=== PATIENT | female | born 1995 | race Caucasian/White ===

== ENCOUNTER 2020-02-11 05:59 | Emergency (ER) | payer BC ==
--- NOTE | 2020-02-11 06:53 | EDM.PDOC ---
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 An ultrasound showed a 2 mm yolk sac that was intrauterine. She is scheduled for a second quantitative beta-hCG on Wednesday. She is having a slight increase in brown discharge and became worried so came in. No cramping or pain. She is tearful because she has been trying to get for the past year. 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, Social & Family History - Tobacco Use Smoking Status *Q: Never Smoker - Caffeine Use Caffeine Use: Reports: None - Recreational Drug Use Recreational Drug Use: No ED ROS GENERAL - Review of Systems Review Of Systems: See Below Constitutional: Denies: Fever, Chills Respiratory: Denies: Shortness of Breath GI/Abdominal: Reports: No Symptoms : Reports: No Symptoms ED EXAM, GI/ABD - Physical Exam Exam: See Below Exam Limited By: No Limitations General Appearance: Alert, No Apparent Distress Respiratory/Chest: No Respiratory Distress Neurological: Alert, Oriented Psychiatric: Flat Affect, Tearful Skin Exam: Warm, Dry Course - Vital Signs Last Recorded V/S: Last Vital Signs Temp 97.7 F 02/11/20 06:20 Pulse 74 02/11/20 06:20 Resp 15 02/11/20 06:20 BP 116/80 02/11/20 06:20 Pulse Ox 97 02/11/20 06:20 - Re-Assessments/Exams Free Text/Narrative Re-Assessment/Exam: 02/11/20 06:53 Reviewed the ultrasound report from 2 days ago which showed a 2 mm intra- gestational yolk sac. A second ultrasound was not even recommended for 11 days. I discussed her case with Khalida Vásquez, her provider to discuss possible progesterone supplementation but it is probably not beneficial for just 2 days. Patient was reassured and will be rechecked on Wednesday as planned. Departure - Departure Time of Disposition: 06:59 Disposition: Home, Self-Care 01 Clinical Impression: Threatened - Discharge Information Instructions: Vaginal Bleeding During , First Trimester Referrals: Khalida Vásquez CNM [Primary Care Provider] - Forms: ED Department Discharge Care Plan Goals: Recheck on Wednesday as scheduled for your blood test. Sepsis Event Note - Evaluation Sepsis Screening Result: No Definite Risk - Focused Exam Vital Signs: Vital Signs Temp Pulse Resp BP Pulse Ox 02/11/20 06:20 97.7 F 74 15 116/80 97 Date Exam was Performed: 02/11/20 Time Exam was Performed: 17:30
== END 2020-02-11 07:00 | disposition home or self-care (01) ==
LOC: JP.ED 05:59
DX: O20.0 Threatened abortion (principal); Z3A.01 Less than 8 weeks gestation of pregnancy
CPT/HCPCS: 99283

== ENCOUNTER 2020-02-15 20:43 | Emergency (ER) | payer BC ==
--- NOTE | 2020-02-15 21:23 | EDM.PDOC ---
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 She had a beta-hCG quant on Wednesday with an ultrasound, was seen in the emergency room Wednesday morning and was followed up in the clinic on Wednesday and her quantitative was 19, 000. She had a little bit of increased spotting tonight and got scared so came in again. No pain or cramping. No fevers or chills or dysuria. She is not bleeding enough to use pads. 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: Reports: Polycystic Ovaries, Social & Family History - Tobacco Use Smoking Status *Q: Never Smoker - Caffeine Use Caffeine Use: Reports: Coffee - Recreational Drug Use Recreational Drug Use: No ED ROS GENERAL - Review of Systems Review Of Systems: See Below Constitutional: Denies: Fever, Chills Respiratory: Denies: Shortness of Breath GI/Abdominal: Denies: Vomiting Neurological: Denies: Headache ED EXAM - Physical Exam Exam: See Below Exam Limited By: No Limitations General Appearance: Alert, No Apparent Distress Respiratory/Chest: No Respiratory Distress (Female) Exam: Other (Vaginal exam was deferred) Neurological: Alert, Oriented Psychiatric: Anxious Skin Exam: Warm, Dry Course - Vital Signs Last Recorded V/S: Last Vital Signs Temp 97.4 F 02/15/20 21:02 Pulse 70 02/15/20 21:02 Resp 15 03/19/20 21:02 BP 118/63 02/15/20 21:02 Pulse Ox 97 02/15/20 21:02 - Orders/Labs/Meds Labs: Laboratory Tests 02/15/20 Range/Units 21:32 HCG, Quant 44208 H (0-6) mIU/mL - Re-Assessments/Exams Free Text/Narrative Re-Assessment/Exam: 02/15/20 21:22 A serum quantitative beta hCG was ordered. 02/15/20 22:52 Quant is now 38,000, consistent with an active . Recheck with her OB/ [facility] as needed. Departure - Departure Time of Disposition: 23:36 Disposition: Home, Self-Care 01 Clinical Impression: Threatened - Discharge Information Instructions: Round Ligament Pain, First Trimester of , [id number], Vaginal Bleeding During , First Trimester, [id number] Referrals: Khalida Vásquez CNM [Primary Care Provider] - Forms: ED Department Discharge Care Plan Goals: Your numbers are improving nicely. Recheck with your OB provider as scheduled. Sepsis Event Note - Evaluation Sepsis Screening Result: No Definite Risk - Focused Exam Vital Signs: Vital Signs Temp Pulse Resp BP Pulse Ox 02/15/20 21:02 97.4 F 70 15 118/63 97 02/15/20 21:00 97.4 F 70 15 118/63 97 Date Exam was Performed: 02/16/20 Time Exam was Performed: 01:05
== END 2020-02-15 23:36 | disposition home or self-care (01) ==
LOC: JP.ED 20:43
DX: O20.0 Threatened abortion (principal); Z3A.01 Less than 8 weeks gestation of pregnancy; Z79.899 Other long term (current) drug therapy
CPT/HCPCS: 36415; 84702; 99284

== ENCOUNTER 2020-09-14 10:54 | Inpatient (IN) | payer MEDICAID ==
[2020-09-14] MEDS ORDERED: Sodium Chloride 0.9% 1,000 ML IV ONE (11:40)
[2020-09-14] MEDS ORDERED: Acetaminophen 500 MG Tab PO ONE (11:42)
[2020-09-14] MEDS ORDERED: Sodium Chloride 0.9% 10 ML Syringe FLUSH PRN (15:06)
[2020-09-14] MEDS: Acetaminophen 325 MG Tab PO PRN (16:30)
[2020-09-14] MEDS: Labetalol 100 MG Tab PO SCH (19:05)
[2020-09-14] MEDS ORDERED: Zolpidem 5 MG Tab PO ONE (21:00)
[2020-09-15] MEDS: Acetaminophen 325 MG Tab PO PRN ×2 (07:53→19:32)
[2020-09-15] MEDS ORDERED: Misoprostol 50 MCG (1/2 of 100 MCG) Tab VAG ONE (08:00)
--- NOTE | 2020-09-15 09:42 | PCM.PNLD ---
Labor Progress Note - VS & Meds Vital Signs: Last Vital Signs Temp 97.6 F 09/15/20 07:45 Pulse 98 09/15/20 07:45 Resp 16 09/15/20 07:45 BP 117/75 09/15/20 07:45 Pulse Ox 98 09/15/20 07:45 Active Medications: Current Medications Acetaminophen (Tylenol) 650 mg PO Q4H PRN PRN Reason: mild pain and fever Last Admin: 09/15/20 07:53 Dose: 650 mg Documented by: Oxytocin/Sodium Chloride (Pitocin In Ns 20 Units/1,000 Ml) 20 unit in 1,000 mls @ 6 mls/hr IV TITRATE YOLIS; Protocol Penicillin G Potassium 5 (millunits/ Sodium Chloride) 100 mls @ 200 mls/hr IV ONETIME ONE Stop: 09/15/20 10:00 Penicillin G Potassium 2.5 (millunits/ Sodium Chloride) 50 mls @ 100 mls/hr IV Q4H YOLIS Labetalol HCl (Normodyne) 100 mg PO DAILY@1800 YOLIS Last Admin: 09/14/20 19:05 Dose: 100 mg Documented by: Sodium Chloride (Saline Flush) 10 ml FLUSH ASDIRECTED PRN PRN Reason: Keep Vein Open Discontinued Medications Acetaminophen (Tylenol Extra Strength) 1,000 mg PO Q4H ONE Stop: 09/14/20 11:43 Last Admin: 09/14/20 11:59 Dose: 1,000 mg Documented by: Sodium Chloride (Normal Saline) 1,000 mls @ 500 mls/hr IV .BOLUS ONE Stop: 09/14/20 13:39 Last Admin: 09/14/20 11:59 Dose: 500 mls/hr Documented by: Misoprostol (Cytotec) 50 mcg VAG ONETIME ONE Stop: 09/15/20 08:01 Last Admin: 09/15/20 08:59 Dose: 50 mcg Documented by: Zolpidem Tartrate (Ambien) 10 mg PO ONETIME ONE Stop: 09/14/20 21:01 Last Admin: 09/14/20 22:03 Dose: 10 mg Documented by: - Uterine Contractions Uterine Monitoring Mode: External [place] Contraction Frequency (min): 3-5 Contraction Duration (sec): 40-90 Contraction Intensity: Mild Uterine Resting Tone: Soft - Monitoring Monitor Mode: Doppler/Auscultation Heart Rate (FHR) Baseline: 140 Heart Rate (FHR) Variability: Moderate (6-25 bmp) Accelerations: Present, 15x15 Decelerations: None - Vaginal Exam Dilation (cm): 1 Effacement (Percent): 50 Station: -2 Cervical Position: Posterior Sterile Vaginal Exam Performed By: Khalida Vásquez Vaginal Exam Comment: Cytotec for cervical ripening placed by Shanta - Labor Progress (Free Text) Labor Progress: 09/15/20 37 5/7 weeks gestation hypertension with preeclampsia Positive GBS Did well over night, slept blood pressure stable on Labetalol headache better but not gone, is receiving Tylenol BPP 8/8 this morning with MARLI 13 NST reactive cat one strip baseline FHT 140 CE 50/-2 posterior soft Labs about the same LDH has increased PLT 238, HGB 10.9 Plan Miso 50 mcg vaginally at 0900 pitocin at 1300 treated for GBS if increase in symptoms or change in labs will start magnesium
[2020-09-15] MEDS ORDERED: Sodium Chloride 0.9% 100 ML ONE (09:44)
[2020-09-15] MEDS ORDERED: Penicillin G Potassium 5 MILLUNITS in Sodium Chloride 0.9% 100 ML IV ONE (10:00)
[2020-09-15] MEDS: Penicillin G Potassium 2.5 MILLUNITS in Sodium Chloride 0.9% 50 ML IV SCH ×2 (13:43→17:41)
--- NOTE | 2020-09-15 16:24 | PCM.PNLD ---
Labor Progress Note - VS & Meds Vital Signs: Last Vital Signs Temp 97.9 F 09/15/20 13:00 Pulse 105 H 09/15/20 13:00 Resp 16 09/15/20 13:00 BP 123/80 09/15/20 13:00 Pulse Ox 98 09/15/20 07:45 Active Medications: Current Medications Acetaminophen (Tylenol) 650 mg PO Q4H PRN PRN Reason: mild pain and fever Last Admin: 09/15/20 07:53 Dose: 650 mg Documented by: Oxytocin/Sodium Chloride (Pitocin In Ns 20 Units/1,000 Ml) 20 unit in 1,000 mls @ 6 mls/hr IV TITRATE YOLIS; Protocol Last Titration: 09/15/20 15:49 Dose: 8 munits/min, 24 mls/hr Documented by: Penicillin G Potassium 2.5 (millunits/ Sodium Chloride) 50 mls @ 100 mls/hr IV Q4H YOLIS Last Admin: 09/15/20 13:43 Dose: 100 mls/hr Documented by: Labetalol HCl (Normodyne) 100 mg PO DAILY@1800 YOLIS Last Admin: 09/14/20 19:05 Dose: 100 mg Documented by: Sodium Chloride (Saline Flush) 10 ml FLUSH ASDIRECTED PRN PRN Reason: Keep Vein Open Discontinued Medications Acetaminophen (Tylenol Extra Strength) 1,000 mg PO Q4H ONE Stop: 09/14/20 11:43 Last Admin: 09/14/20 11:59 Dose: 1,000 mg Documented by: Sodium Chloride (Normal Saline) 1,000 mls @ 500 mls/hr IV .BOLUS ONE Stop: 09/14/20 13:39 Last Admin: 09/14/20 11:59 Dose: 500 mls/hr Documented by: Penicillin G Potassium 5 (millunits/ Sodium Chloride) 100 mls @ 200 mls/hr IV ONETIME ONE Stop: 09/15/20 10:29 Last Admin: 09/15/20 09:53 Dose: 200 mls/hr Documented by: Sodium Chloride (Normal Saline) Confirm Administered Dose 100 mls @ as directed .ROUTE .STK-MED ONE Stop: 09/15/20 09:45 Last Admin: 09/15/20 10:00 Dose: Not Given Documented by: Misoprostol (Cytotec) 50 mcg VAG ONETIME ONE Stop: 09/15/20 08:01 Last Admin: 09/15/20 08:59 Dose: 50 mcg Documented by: Zolpidem Tartrate (Ambien) 10 mg PO ONETIME ONE Stop: 09/14/20 21:01 Last Admin: 09/14/20 22:03 Dose: 10 mg Documented by: - Uterine Contractions Uterine Monitoring Mode: Palpation Contraction Frequency (min): 2-3 Contraction Duration (sec): 60 Contraction Intensity: Moderate Uterine Resting Tone: Soft - Monitoring Monitor Mode: Doppler/Auscultation Heart Rate (FHR) Baseline: 140 Heart Rate (FHR) Variability: Moderate (6-25 bmp) Accelerations: Present, 15x15 Decelerations: None Strip Review: Category I - Vaginal Exam Dilation (cm): 1 Effacement (Percent): 50 Station: -1 Cervical Position: Posterior Sterile Vaginal Exam Performed By: Khalida Vásquez Vaginal Exam Comment: head is a little lower as cervix is more posterior but very difficult to reach at this check - Labor Progress (Free Text) Labor Progress: continue with Pitocin and reassess at 2000 this evening Cat one strip contractions not a total regular pattern. Siobhan is doing well with position changes and tolerating contractions well. B/P within normal limits with Pitocin induced contractions
[2020-09-15] MEDS: Labetalol 100 MG Tab PO SCH (17:41)
--- NOTE | 2020-09-15 19:45 | PCM.PNLD ---
Labor Progress Note - VS & Meds Vital Signs: Last Vital Signs Temp 98.7 F 09/15/20 19:37 Pulse 89 09/15/20 19:37 Resp 18 09/15/20 19:37 BP 106/68 09/15/20 19:37 Pulse Ox 96 09/15/20 19:37 Active Medications: Current Medications Acetaminophen (Tylenol) 650 mg PO Q4H PRN PRN Reason: mild pain and fever Last Admin: 09/15/20 19:32 Dose: 650 mg Documented by: Oxytocin/Sodium Chloride (Pitocin In Ns 20 Units/1,000 Ml) 20 unit in 1,000 mls @ 6 mls/hr IV TITRATE YOLIS; Protocol Last Titration: 09/15/20 19:39 Dose: 0 munits/min, 0 mls/hr Documented by: Penicillin G Potassium 2.5 (millunits/ Sodium Chloride) 50 mls @ 100 mls/hr IV Q4H YOLIS Last Admin: 09/15/20 17:41 Dose: 100 mls/hr Documented by: Labetalol HCl (Normodyne) 100 mg PO DAILY@1800 YOLIS Last Admin: 09/15/20 17:41 Dose: 100 mg Documented by: Sodium Chloride (Saline Flush) 10 ml FLUSH ASDIRECTED PRN PRN Reason: Keep Vein Open Discontinued Medications Acetaminophen (Tylenol Extra Strength) 1,000 mg PO Q4H ONE Stop: 09/14/20 11:43 Last Admin: 09/14/20 11:59 Dose: 1,000 mg Documented by: Sodium Chloride (Normal Saline) 1,000 mls @ 500 mls/hr IV .BOLUS ONE Stop: 09/14/20 13:39 Last Admin: 09/14/20 11:59 Dose: 500 mls/hr Documented by: Penicillin G Potassium 5 (millunits/ Sodium Chloride) 100 mls @ 200 mls/hr IV ONETIME ONE Stop: 09/15/20 10:29 Last Admin: 09/15/20 09:53 Dose: 200 mls/hr Documented by: Sodium Chloride (Normal Saline) Confirm Administered Dose 100 mls @ as directed .ROUTE .STK-MED ONE Stop: 09/15/20 09:45 Last Admin: 09/15/20 10:00 Dose: Not Given Documented by: Misoprostol (Cytotec) 50 mcg VAG ONETIME ONE Stop: 09/15/20 08:01 Last Admin: 09/15/20 08:59 Dose: 50 mcg Documented by: Zolpidem Tartrate (Ambien) 10 mg PO ONETIME ONE Stop: 09/14/20 21:01 Last Admin: 09/14/20 22:03 Dose: 10 mg Documented by: - Uterine Contractions Uterine Monitoring Mode: Palpation Contraction Frequency (min): 2-3 Contraction Duration (sec): 30-60 Contraction Intensity: Moderate Uterine Resting Tone: Soft - Monitoring Monitor Mode: Doppler/Auscultation Heart Rate (FHR) Baseline: 140 Heart Rate (FHR) Variability: Moderate (6-25 bmp) Accelerations: Present, 15x15 Decelerations: None Strip Review: Category I - Vaginal Exam Dilation (cm): 1 Effacement (Percent): 50 Station: -1 Cervical Position: Posterior Sterile Vaginal Exam Performed By: Khalida Vásquez Vaginal Exam Comment: no cervix change - Labor Progress (Free Text) Labor Progress: 09/15/20 gestational hypertension with preeclampsia Siobhan cervix hasn't changed all day. contractions are 1-2 minutes apart and pitocin has been infusing since 1300. Plan C section this evening Covid screening done surgery crew notified.
[2020-09-15] MEDS ORDERED: ceFAZolin 1 GM Vial ONE (20:15)
[2020-09-15] MEDS ORDERED: cefOXitin 2 GM Vial ONE (20:21)
[2020-09-15] MEDS ORDERED: ePHEDrine 50 MG/ML SDV ONE (20:21)
[2020-09-15] MEDS: Oxytocin 10 Units/1 ML SDV ONE ×3 (20:33→21:26)
[2020-09-15] MEDS: cefOXitin 1 GM Vial ONE ×2 (21:20→21:41)
[2020-09-15] MEDS ORDERED: Ondansetron 4 MG/2 ML SDV ONE (21:25)
[2020-09-15] MEDS ORDERED: Dexamethasone 4 MG/ML SDV ONE (21:25)
[2020-09-15] MEDS ORDERED: Oxytocin 10 Units/1 ML SDV ONE (21:50)
[2020-09-15] MEDS ORDERED: HYDROmorphone/Normal Saline 15 MG/30 ML PCA IV PRN (22:35)
[2020-09-15] MEDS ORDERED: hydrOXYzine HCL 100 MG/2 ML SDV IM PRN (22:44)
[2020-09-15] MEDS ORDERED: Dextrose 5%-Lactated Ringers 1,000 ML IV SCH (22:45)
[2020-09-15] MEDS ORDERED: Ondansetron 4 MG/2 ML SDV IVPUSH PRN (22:46)
[2020-09-15] MEDS ORDERED: Naloxone 0.4 MG/ML SDV IV PRN (23:00)
[2020-09-16] MEDS: Acetaminophen 500 MG Tab PO SCH ×5 (00:35→22:00)
[2020-09-16] MEDS: Ibuprofen 600 MG Tab PO SCH ×4 (01:06→20:44)
[2020-09-16] MEDS: Penicillin G Potassium 2.5 MILLUNITS in Sodium Chloride 0.9% 50 ML IV SCH (01:44)
[2020-09-16] MEDS: cefOXitin 2 GM in Sodium Chloride 0.9% 50 ML IV SCH ×4 (03:03→20:48)
[2020-09-16] MEDS ORDERED: Dextrose 5%-Lactated Ringers 1,000 ML IV SCH (07:00)
--- NOTE | 2020-09-16 08:02 | PN ---
DATE OF SERVICE: 09/16/2020 SUBJECTIVE: Siobhan is postoperative day #1. Vital signs have been stable. Pain has been managed with a FISHER HAND LINE. She has been up, ambulating. REVIEW OF SYSTEMS: Remainder of review of systems negative for any pertinent positives and negatives. OBJECTIVE: GENERAL: Siobhan is a pleasant 25-year-old female. VITAL SIGNS: TPR, last temperature at 0038 was 97.9. The rest of the vitals at 04:15; 89, 18, blood pressure 106/61. HEENT: Negative. NECK: Supple. HEART: Regular rate and rhythm. LUNGS: Clear. ABDOMEN: Dressing dry and intact. EXTREMITIES: Without peripheral edema. ASSESSMENT: section for term with preeclampsia and failure to progress after induction. Date of : 09/15/2020. Surgeon: Dl Fulton MD. PLAN: 1. Discontinue Mcnally catheter. 2. Advance diet as tolerated. 3. Decrease IV to 100 mL per hour. 4. Colace 100 mg p.o. b.i.d. 5. Continue use of incentive spirometer. 6. We will evaluate p.r.n. or in a.m. Katherin Garnda PA-C /[id number]
[2020-09-16] MEDS: Docusate Sodium 100 MG Cap PO SCH ×2 (08:04→20:45)
--- NOTE | 2020-09-16 10:14 | US ---
BPP w NST INDICATION: gestational hypertension COMPARISON: 09/11/2020 FINDINGS: Single live IUP heart rate: 130 BPM. Biophysical profile score: 8/8. MARLI: 13.6 cm. IMPRESSION: Normal biophysical profile score of 8/8.
[2020-09-16] MEDS: oxyCODONE 5 MG Tab PO PRN ×2 (17:48→22:01)
[2020-09-16] MEDS ORDERED: Lanolin 100% Cream 40 GM Tube TOP PRN (20:17)
[2020-09-17] MEDS: Ibuprofen 600 MG Tab PO SCH ×3 (03:55→14:04)
[2020-09-17] MEDS: oxyCODONE 5 MG Tab PO PRN ×2 (05:42→10:20)
[2020-09-17] MEDS: Acetaminophen 500 MG Tab PO SCH ×3 (05:43→16:54)
[2020-09-17] MEDS: Docusate Sodium 100 MG Cap PO SCH (10:19)
--- NOTE | 2020-09-17 11:07 | DISCH ---
ADMISSION DIAGNOSES: 1. Term . 2. Preeclampsia. 3. Failure to progress after induction. DISCHARGE DIAGNOSES: section for term with preeclampsia, failure to progress after induction. Date of 09/15/2020. Surgeon: Dl Fulton MD. HISTORY: Siobhan Manzo is a pleasant 25-year-old female who had failure to progress after induction. She had preeclampsia. After preoperative evaluation and discussion of possible risks and possible complications, she wished to proceed with surgical procedure. HOSPITAL COURSE: was on 09/15/2020, no complications. Delivery of a viable baby girl. Hospital course; postop day 1, Mcnally catheter was discontinued. Diet was advanced as tolerated. She was changed to oral pain medications. Started on a stool softener. On postoperative day 2, was able to be discharged to home. Afebrile. Pain controlled. Activity good. Vital signs stable. Oral intake and output adequate. REVIEW OF SYSTEMS: Remainder of review of systems negative for any pertinent positives and negatives. OBJECTIVE: GENERAL: Siobhan Allen is a pleasant 25-year-old female. VITAL SIGNS: Height 5 feet 10 inches, weight is 242 pounds. TPR is 97.9, 88, 16. Blood pressure 107/63. HEENT: Negative. NECK: Supple. HEART: Regular rate and rhythm. LUNGS: Clear. ABDOMEN: incision looks good. It is glued. EXTREMITIES: With trace peripheral edema. DISPOSITION: Discharged to home. CONDITION: Stable and improving. FOLLOWUP APPOINTMENT: With Katherin Granda PA-C, at [facility] on 09/26/2020 at 10:30 a.m. To follow up with Khalida Vásquez CNM, date to be made. HOME MEDICATIONS: 1. Oxycodone 5 mg q.6 hours p.r.n. pain #28. 2. She is to can take Colace 100 mg b.i.d. #60. 3. She will be taking home the lanolin, use as directed, p.r.n. topical. 4. Milk of magnesia 30 mL, 2 doses were sent home with the patient to take 1 daily, p.r.n. constipation. 5. Ibuprofen 600 mg q.6 hours p.r.n. pain. 6. Tylenol 1000 mg every 6 hours for pain. To resume; 1. Labetalol 100 mg p.o. daily. 2. vitamins 1 daily. 3. Metamucil 1 daily. DIET: Usual diet as tolerated. Drink 8 to 10 glasses of water a day. ACTIVITY: No lifting over 10 pounds for 6 weeks. May lift car seat and baby. Other activity: Walk 6 times daily inside your home. Driving: Do not drive for 1 week or within 6 to 8 hours of taking oxycodone. Shower/bathing: May shower. No tub bathing or swimming for 8 weeks. DISCHARGE INSTRUCTIONS: Notify provider if any fever, increased pain, drainage, nausea, vomiting. Keep site clean and dry. Wear abdominal binder for 2 weeks and then as tolerated. Special instructions: Use incentive spirometer 10 times every hour while awake.
[2020-09-17] MEDS ORDERED: Magnesium Hydroxide 400 MG/5 ML Susp 30 ML Cup PO ONE ×2 (14:00→14:30)
--- NOTE | 2020-09-22 12:55 | OR ---
DATE OF PROCEDURE: 09/15/2020 SURGEON: Dl Fulton MD PREOPERATIVE DIAGNOSIS: Term with induction secondary to preeclampsia with failure to progress. POSTOPERATIVE DIAGNOSIS: Term with induction secondary to preeclampsia with failure to progress. OPERATIVE PROCEDURE: section (07273). [employer] OPERATIONS MANAGER: Kylie Vásquez CNM. INDICATION FOR PROCEDURE: This is a 25-year-old admitted with induction related to preeclampsia. During the day, she has had no significant progression, and at this point, the plan is to proceed with a section. Potential risks including bleeding, infection, injury to mother or baby were reviewed, and the patient wishes to proceed. PROCEDURE IN DETAIL: The patient was taken to the operating room and placed in a supine position. Spinal anesthetic had been placed and a roll placed underneath the right hip. Mcnally catheter was inserted and the abdomen prepped and draped. A transverse Pfannenstiel incision was made and carried down through skin and subcutaneous tissue and through the anterior rectus sheath. Subrectus sheath flaps were raised superiorly and inferiorly and the midline peritoneum divided. Peritoneal reflection of the bladder on the uterus was then divided and reflected downward. A transverse lower uterine segment incision was made and a viable fetus was delivered through vertex presentation. The cord was clamped and cut and routine care given off the field per Kylie Vásquez CNM. The patient was given IV intrauterine oxytocin and IV cefoxitin. Good uterine contractions noted and placenta and membranes were delivered without difficulty. The uterus was then closed with 2 layers of 2-0 Vicryl stitch as was the peritoneal reflection of the bladder on the uterus. The midline peritoneum was then approximated with a #2 Vicryl stitch as was the anterior rectus sheath. The subcutaneous tissue approximated with some 3-0 Vicryl stitch and the skin with 4-0 Vicryl subcuticular stitch. Dressing was applied. The patient was taken to the recovery room in satisfaction condition. Per ACOG standard, Khalida Vásquez CNM served as an nutrition assistant in this case. Dl Fulton MD /[id number]
== END 2020-09-17 18:30 | disposition home or self-care (01) | DRG 788 ==
LOC: JP.OBCHECK 10:54 → JP.OB 12:54 → OBSVTOIN 21:25 → JP.MS 09-15 22:44
PROVIDERS: ADMIT Nurse Practitioner Family; ATTEND Surgery
PROC: 10D00Z1 Extraction of Products of Conception, Low, Open Approach (ICD-10-PCS; principal; 2020-09-14)
DX: O14.94 Unspecified pre-eclampsia, complicating childbirth (principal); Z37.0 Single live birth; O62.1 Secondary uterine inertia; Z20.828 Contact with and (suspected) exposure to other viral communicable diseases
CPT/HCPCS: 36415; 59409; 76818; 76818-26; 80048; 80053; 81001; 81003; 82570; 83615; 83735; 84156; 84450; 84460; 84550; 85025; 86850; 86900; 86901; 88307; 94762; 99211; A9270-GY; J0690; J0694; J1100; J1170; J2405; J2540; J2590; J7030; J7050; J7121; U0002

== ENCOUNTER 2024-01-08 11:04 | Emergency (ER) | payer MEDICAID, OTHER | END 2024-01-08 12:40 | disposition home or self-care (01) | LOC: JP.ED 11:04 | DX: N76.0 Acute vaginitis (principal); K21.9 Gastro-esophageal reflux disease without esophagitis; Z86.16 Personal history of COVID-19 | CPT/HCPCS: 87210; 87491; 87529; 87591; 99283 ==

== ENCOUNTER 2024-04-11 19:38 | Emergency (ER) | payer MEDICAID ==
[2024-04-11 20:07] LABS: APPEARANCE,URINE SLIGHTLY CLOUDY (CLEAR); BILIRUBIN,URINE NEGATIVE (NEGATIVE); COLOR,URINE YELLOW (YELLOW); GLUCOSE,URINE NEGATIVE (NEGATIVE); KETONES,URINE NEGATIVE (NEGATIVE); LEUKOCYTE ESTERASE,URINE NEGATIVE (NEGATIVE); NITRITE,URINE NEGATIVE (NEGATIVE); OCCULT BLOOD,URINE TRACE-INTACT (NEGATIVE); PH,URINE 6.5 (5.0-8.0); PROTEIN,URINE NEGATIVE (NEGATIVE); UROBILINOGEN,URINE 0.2 EU/dL (0.2-1.0)
[2024-04-11 20:13] LABS: AMORPHOUS SEDIMENT,URINE NOT SEEN; BACTERIA,URINE MODERATE; EPITHELIAL CELLS,URINE MODERATE; MUCUS,URINE FEW; WBC,URINE NOT SEEN (0-5)
[2024-04-11 21:00] LABS: BASOPHILS ABSOLUTE AUTO 0.04 K/uL (0.00-0.10); BASOPHILS PERCENT AUTO 0.5 % (0.1-1.3); EOSINOPHILS ABSOLUTE AUTO 0.46 K/uL (0.00-0.40); HEMOGLOBIN 13.4 g/dL (11.2-15.5); IMMATURE GRAN PERCENT AUTO 0.3 % (0.0-0.7); LYMPHOCYTES ABSOLUTE AUTO 2.46 K/uL (0.8-3.3); LYMPHOCYTES PERCENT AUTO 32.1 % (11.4-47.7); MEAN CORPUSCULAR HEMOGLOBIN 28.9 pg (31.6-35.5); MEAN CORPUSCULAR HGB CONC 35.3 g/dL (31.6-35.5); MEAN CORPUSCULAR VOLUME 82.1 fL (81.4-99.0); MONOCYTES ABSOLUTE AUTO 0.53 K/uL (0.20-0.90); MONOCYTES PERCENT AUTO 6.9 % (3.3-12.6); NEUTROPHILS ABSOLUTE AUTO 4.15 K/uL (1.0-7.6); NEUTROPHILS PERCENT AUTO 54.2 % (40.0-78.1); PLATELET COUNT,PLT 261 K/uL (130-375); RED BLOOD CELL COUNT 4.63 M/uL (3.77-5.24); WHITE BLOOD CELL COUNT,WBC 7.7 K/uL (3.2-11.0)
[2024-04-11 21:04] LABS: IMMATURE GRAN ABSOLUTE AUTO 0.02 K/uL (0.00-0.23)
[2024-04-11 21:20] LABS: A/G RATIO 0.8 (1.2-2.2); ALANINE AMINOTRANSFERASE,ALT 57 U/L (12-78); ALBUMIN 3.5 g/dL (3.4-5.0); ALKALINE PHOSPHATASE 65 U/L (46-116); ANION GAP 10.7 mmol/L (5.0-14.0); ASPARTATE AMNIOTRANSFERASE,AST 35 U/L (15-37); BILIRUBIN TOTAL 0.2 mg/dL (0.2-1.0); BLOOD UREA NITROGEN,BUN 15 mg/dL (7-18); CALCIUM 9.1 mg/dL (8.5-10.1); CARBON DIOXIDE,CO2 25 mmol/L (21-32); CHLORIDE,CL 104 mmol/L (100-108); CREATININE 0.8 mg/dL (0.6-1.0); EST CRCL DRUG DOSING (CG) 114.23 mL/min; ESTIMATED GFR 104 mL/min (>60); GLUCOSE RANDOM 100 mg/dL (74-106); PROTEIN TOTAL,TP 7.7 g/dL (6.4-8.2); SODIUM,NA 140 mmol/L (140-148)
== END 2024-04-11 22:05 | disposition home or self-care (01) ==
LOC: JP.ED 19:38
DX: R10.84 Generalized abdominal pain (principal); R10.10 Upper abdominal pain, unspecified; K21.9 Gastro-esophageal reflux disease without esophagitis; Z86.16 Personal history of COVID-19; Z79.899 Other long term (current) drug therapy
CPT/HCPCS: 36415; 80053; 81001; 81025; 85025; 99284

== ENCOUNTER 2024-05-30 06:02 | Day surgery (SDC) | payer MEDICAID ==
[2024-05-30] MEDS: Sodium Chloride 0.9% 1,000 ML IV SCH (06:26)
[2024-05-30 06:42] LABS: HEMATOCRIT 36.5 % (34.3-46.0); HEMOGLOBIN 12.8 g/dL (11.2-15.5); MEAN CORPUSCULAR HEMOGLOBIN 29.2 pg (31.6-35.5); MEAN CORPUSCULAR HGB CONC 35.1 g/dL (31.6-35.5); MEAN CORPUSCULAR VOLUME 83.1 fL (81.4-99.0); RED BLOOD CELL COUNT 4.39 M/uL (3.77-5.24); WHITE BLOOD CELL COUNT,WBC 6.6 K/uL (3.2-11.0)
[2024-05-30] MEDS: Indocyanine Green 25 MG SDV IV ONE (06:47)
[2024-05-30 07:05] LABS: A/G RATIO 0.9 (1.2-2.2); ALANINE AMINOTRANSFERASE,ALT 39 U/L (12-78); ALBUMIN 3.5 g/dL (3.4-5.0); ALKALINE PHOSPHATASE 69 U/L (46-116); ASPARTATE AMNIOTRANSFERASE,AST 21 U/L (15-37); BILIRUBIN TOTAL 0.3 mg/dL (0.2-1.0); BLOOD UREA NITROGEN,BUN 20 mg/dL (7-18); CALCIUM 8.8 mg/dL (8.5-10.1); CARBON DIOXIDE,CO2 25 mmol/L (21-32); CHLORIDE,CL 103 mmol/L (100-108); EST CRCL DRUG DOSING (CG) 91.38 mL/min; ESTIMATED GFR 79 mL/min (>60); GLUCOSE RANDOM 87 mg/dL (74-106); POTASSIUM,K 3.8 mmol/L (3.6-5.2); PROTEIN TOTAL,TP 7.6 g/dL (6.4-8.2); SODIUM,NA 139 mmol/L (140-148)
[2024-05-30 07:10] LABS: ANION GAP 14.8 mmol/L (5.0-14.0)
[2024-05-30] MEDS ORDERED: fentaNYL 250 MCG/5 ML SDV ONE (07:26)
[2024-05-30] MEDS ORDERED: Propofol 200 MG/20 ML SDV ONE (07:27)
[2024-05-30] MEDS ORDERED: Succinylcholine 200 MG/10 ML MDV ONE (07:27)
[2024-05-30] MEDS ORDERED: Neostigmine Methylsulfate 10 MG/10 ML MDV ONE (07:27)
[2024-05-30] MEDS ORDERED: Dexamethasone 4 MG/ML SDV ONE (07:27)
[2024-05-30] MEDS ORDERED: Ondansetron 4 MG/2 ML SDV ONE (07:27)
[2024-05-30] MEDS ORDERED: Glycopyrrolate 0.2 MG/ML 5 ML MDV ONE (07:27)
[2024-05-30] MEDS ORDERED: Rocuronium 50 MG/5 ML Vial ONE (07:27)
[2024-05-30] MEDS: ceFAZolin 2 GM in Premix Bag 1 BAG IV ONE (07:40)
[2024-05-30] MEDS: metroNIDAZOLE/Normal Saline 500 MG in Premix Bag 1 BAG IV ONE (08:10)
[2024-05-30] MEDS: Bupivacaine 0.5% 50 ML MDV ONE (08:30)
[2024-05-30] MEDS: Lidocaine 1% with EPINEPHrine 1:100,000 50 ML MDV ONE (08:30)
[2024-05-30] MEDS ORDERED: Ketorolac 30 MG/ML SDV ONE (08:48)
[2024-05-30] MEDS: fentaNYL 50 MCG/ML SDV IVPUSH ONE (08:57)
[2024-05-30] MEDS ORDERED: Acetaminophen/HYDROcodone 325-5 MG Tab PO ONE (10:30)
[2024-05-30] MEDS: Acetaminophen/HYDROcodone 325-5 MG Tab PO ONE (10:45)
== END 2024-05-30 12:00 | disposition home or self-care (01) ==
LOC: JP.SDS 06:02
PROVIDERS: ATTEND Surgery
DX: K80.10 Calculus of gallbladder with chronic cholecystitis without obstruction (principal); K21.9 Gastro-esophageal reflux disease without esophagitis; Z88.6 Allergy status to analgesic agent; Z87.891 Personal history of nicotine dependence
CPT/HCPCS: 00790; 36415; 47562; 80053; 84703; 85027; A9270; J0171; J0330; J0665; J0690; J1100; J1596; J1836; J1885; J2405; J2704; J2710; J2795; J3010; J3490; J7030

== ENCOUNTER 2024-06-27 21:57 | Emergency (ER) | payer MEDICAID ==
[2024-06-27 22:25] LABS: BASOPHILS ABSOLUTE AUTO 0.06 K/uL (0.00-0.10); BASOPHILS PERCENT AUTO 0.8 % (0.1-1.3); EOSINOPHILS ABSOLUTE AUTO 0.15 K/uL (0.00-0.40); EOSINOPHILS PERCENT AUTO 1.9 % (0.0-5.4); HEMATOCRIT 33.7 % (34.3-46.0); HEMOGLOBIN 11.8 g/dL (11.2-15.5); IMMATURE GRAN PERCENT AUTO 0.3 % (0.0-0.7); LYMPHOCYTES ABSOLUTE AUTO 2.23 K/uL (0.8-3.3); LYMPHOCYTES PERCENT AUTO 28.9 % (11.4-47.7); MEAN CORPUSCULAR HEMOGLOBIN 28.7 pg (31.6-35.5); MONOCYTES ABSOLUTE AUTO 0.36 K/uL (0.20-0.90); MONOCYTES PERCENT AUTO 4.7 % (3.3-12.6); NEUTROPHILS ABSOLUTE AUTO 4.89 K/uL (1.0-7.6); NEUTROPHILS PERCENT AUTO 63.4 % (40.0-78.1); PLATELET COUNT,PLT 271 K/uL (130-375); RED BLOOD CELL COUNT 4.11 M/uL (3.77-5.24); WHITE BLOOD CELL COUNT,WBC 7.7 K/uL (3.2-11.0)
[2024-06-27 22:26] LABS: IMMATURE GRAN ABSOLUTE AUTO 0.02 K/uL (0.00-0.23)
[2024-06-27 22:47] LABS: A/G RATIO 0.9 (1.2-2.2); ALANINE AMINOTRANSFERASE,ALT 48 U/L (12-78); ALBUMIN 3.4 g/dL (3.4-5.0); ALKALINE PHOSPHATASE 78 U/L (46-116); ASPARTATE AMNIOTRANSFERASE,AST 21 U/L (15-37); BILIRUBIN TOTAL 0.4 mg/dL (0.2-1.0); BLOOD UREA NITROGEN,BUN 15 mg/dL (7-18); CALCIUM 8.3 mg/dL (8.5-10.1); CARBON DIOXIDE,CO2 24 mmol/L (21-32); CHLORIDE,CL 101 mmol/L (100-108); EST CRCL DRUG DOSING (CG) 91.38 mL/min; ESTIMATED GFR 79 mL/min (>60); GLUCOSE RANDOM 124 mg/dL (74-106); POTASSIUM,K 3.5 mmol/L (3.6-5.2); PROTEIN TOTAL,TP 7.1 g/dL (6.4-8.2); SODIUM,NA 137 mmol/L (140-148)
[2024-06-27 22:48] LABS: ANION GAP 15.5 mmol/L (5.0-14.0)
== END 2024-06-27 23:08 | disposition home or self-care (01) ==
LOC: JP.ED 21:57
DX: R51.9 Headache, unspecified (principal); Z86.16 Personal history of COVID-19; Z90.49 Acquired absence of other specified parts of digestive tract; Z79.899 Other long term (current) drug therapy; Z88.8 Allergy status to other drugs, medicaments and biological substances
CPT/HCPCS: 36415; 80053; 83605; 85025; 86140; 99284

== ENCOUNTER 2025-08-27 20:30 | Emergency (ER) | payer MEDICAID | END 2025-08-27 21:22 | disposition home or self-care (01) | LOC: JP.ED 20:30 | DX: O99.513 Diseases of the respiratory system complicating pregnancy, third trimester (principal); J06.9 Acute upper respiratory infection, unspecified; Z86.16 Personal history of COVID-19; Z90.49 Acquired absence of other specified parts of digestive tract; Z88.6 Allergy status to analgesic agent; Z79.899 Other long term (current) drug therapy; Z3A.28 28 weeks gestation of pregnancy | CPT/HCPCS: 99283 ==